=== PATIENT | female | born 1980 | race Caucasian/White ===

== ENCOUNTER 2018-03-02 03:26 | Inpatient (IN) | payer MEDICAID ==
[~2018-03-02] VITALS: Ht 165.1 cm; Wt 95.2 kg
[2018-03-02 05:21] LABS: CALCIUM 8.2 mg/dL (8.5-10.1); CARBON DIOXIDE 26.6 mmol/L (21-32); CHLORIDE SERUM 107 mmol/L (98-107); CREATININE SERUM 0.9 mg/dL (0.6-1.0); GFR1 > 60 mL/min; GLUCOSE SERUM 94 mg/dL (74-106); POTASSIUM SERUM 3.6 mmol/L (3.5-5.1); SODIUM SERUM 141 mmol/L (136-145)
[2018-03-02 05:27] LABS: ALBUMIN 3.5 g/dL (3.4-5.0); ALKALINE PHOSPHATASE 69 U/L (46-116); ALT/SGPT 22 U/L (14-59); AST/SGOT 15 U/L (15-37); BILIRUBIN TOTAL 0.27 mg/dL (0.20-1.00); LIPASE 110 IU/L (73-393); TOTAL PROTEIN, SERUM 6.9 g/dL (6.4-8.2)
[2018-03-02 07:07] LABS: BASOPHIL % 0.1 % (0-2); PLATELET COUNT 308 x10^3mcL (130-400)
[2018-03-02 07:12] LABS: RED CELL DISTRIBUTION WIDTH 21.7 % (11.5-14.5)
[2018-03-02 07:14] LABS: rbc morphology (normal/abnorm) ABNORMAL (NORMAL)
[2018-03-02 07:53] LABS: CHOLESTEROL 121 mg/dL (<200); HDL CHOLESTEROL 31 mg/dL (40-60)
[2018-03-02 08:43] LABS: microscopic required? YES; urine erythrocyte 3+ (NEGATIVE)
[2018-03-02] MEDS ORDERED: [UNRECOGNIZED DRUG - OTHER] PO (10:28)
[2018-03-02] MEDS ORDERED: LEVOTHYROXIN0.125 M2 PO (10:28)
[2018-03-02 11:35] LABS: MAGNESIUM 2.4 mg/dL (1.8-2.4); PHOSPHOROUS 3.5 mg/dL (2.5-4.9)
[2018-03-02 11:39] LABS: CHOLESTEROL/HDL RATIO 3.9
[2018-03-02 11:54] VITALS: BP 100/50
[2018-03-02 12:07] LABS: FREE T4 1.11 ng/dL (0.76-1.46); FREE THYROXINE INDEX 2.3 ug/dL (1.4-4.5); T4(THYROXINE) 7.1 ug/dL (4.7-13.3)
[2018-03-02 15:09] LABS: AMPHETAMINE QUAL UR NONE DETECTED (See below)
[2018-03-02 15:14] LABS: TOTAL IRON BINDING CAPACITY 398 ug/dL (250-450)
[2018-03-02 15:17] LABS: IRON 8 ug/dL (50-170)
[2018-03-02 15:27] LABS: RED BLOOD CELLS 4.1 M/mm3 (4.10-5.10)
[2018-03-02 17:25] VITALS: BP 105/66
[2018-03-02 21:03] VITALS: BP 98/58
[2018-03-03 05:13] VITALS: BP 100/41
[2018-03-03 06:08] LABS: CALCIUM 7.7 mg/dL (8.5-10.1); CARBON DIOXIDE 24.2 mmol/L (21-32); CHLORIDE SERUM 108 mmol/L (98-107); CREATININE SERUM 0.7 mg/dL (0.6-1.0); GFR1 > 60 mL/min; GLUCOSE SERUM 87 mg/dL (74-106); MAGNESIUM 2.2 mg/dL (1.8-2.4); PHOSPHOROUS 3.6 mg/dL (2.5-4.9); POTASSIUM SERUM 3.8 mmol/L (3.5-5.1); SODIUM SERUM 140 mmol/L (136-145)
[2018-03-03 07:09] LABS: BASOPHIL % 0.3 % (0-2); PLATELET COUNT 275 x10^3mcL (130-400)
[2018-03-03 07:11] LABS: RED CELL DISTRIBUTION WIDTH 22.1 % (11.5-14.5)
[2018-03-03 07:12] LABS: rbc morphology (normal/abnorm) ABNORMAL (NORMAL)
[2018-03-03 09:00] VITALS: BP 104/39
[2018-03-03 10:25] VITALS: Ht 165.1 cm; Wt 95.2 kg
[2018-03-03 12:35] VITALS: BP 112/67
[2018-03-03 16:56] VITALS: BP 97/42
[2018-03-03 20:45] VITALS: BP 97/57
[2018-03-03 20:52] VITALS: BP 97/57
[2018-03-03 22:11] LABS: BASOPHIL % 0.1 % (0-2); PLATELET COUNT 268 x10^3mcL (130-400)
[2018-03-03 22:24] LABS: RED CELL DISTRIBUTION WIDTH 25.1 % (11.5-14.5)
[2018-03-03 23:03] LABS: ovalocyte/elliptocyte 2+; rbc morphology (normal/abnorm) ABNORMAL (NORMAL); tear drop cell (dacryocyte) 1+
[2018-03-04 05:21] VITALS: BP 99/51
[2018-03-04 06:54] LABS: CALCIUM 8.1 mg/dL (8.5-10.1); CHLORIDE SERUM 108 mmol/L (98-107); CREATININE SERUM 0.8 mg/dL (0.6-1.0); GFR1 > 60 mL/min; GLUCOSE SERUM 83 mg/dL (74-106); MAGNESIUM 2.2 mg/dL (1.8-2.4); POTASSIUM SERUM 3.9 mmol/L (3.5-5.1); SODIUM SERUM 142 mmol/L (136-145)
[2018-03-04 08:20] LABS: BASOPHIL % 0.8 % (0-2); PLATELET COUNT 247 x10^3mcL (130-400)
[2018-03-04 08:24] LABS: RED CELL DISTRIBUTION WIDTH 26.4 % (11.5-14.5)
[2018-03-04 09:16] VITALS: BP 104/48
[2018-03-04 12:08] LABS: ovalocyte/elliptocyte 2+; rbc morphology (normal/abnorm) ABNORMAL (NORMAL); tear drop cell (dacryocyte) 1+
[2018-03-04 13:08] VITALS: BP 106/56
[2018-03-04 14:34] VITALS: BP 106/56
[2018-03-04] MEDS ORDERED: FER300 PO (15:50)
[2018-03-04] MEDS ORDERED: PRI20 PO (15:51)
[2018-03-04] MEDS ORDERED: COLACE100 MG PO (15:53)
[2018-03-04] MEDS ORDERED: CARAFATE1 GM PO (15:54)
[2018-03-04 16:33] VITALS: BP 102/52
== END 2018-03-04 18:30 | disposition home or self-care (01) | DRG 241 ==
LOC: ED 03:26 → DU 10:05
PROVIDERS: Emergency Medicine; Family Medicine; Internal Medicine
PROC: 30233N1 Transfusion of Nonautologous Red Blood Cells into Peripheral Vein, Percutaneous Approach (ICD-10-PCS; 2018-03-03)
PROC: 0DB78ZZ Excision of Stomach, Pylorus, Via Natural or Artificial Opening Endoscopic (ICD-10-PCS; principal; 2018-03-03 08:30)
PROC: 0D568ZZ Destruction of Stomach, Via Natural or Artificial Opening Endoscopic (ICD-10-PCS; 2018-03-03 08:30)
DX: K25.4 Chronic or unspecified gastric ulcer with hemorrhage (principal); N17.0 Acute kidney failure with tubular necrosis; D62 Acute posthemorrhagic anemia; K80.20 Calculus of gallbladder without cholecystitis without obstruction; E83.51 Hypocalcemia; D50.9 Iron deficiency anemia, unspecified; E03.9 Hypothyroidism, unspecified; Z68.36 Body mass index [BMI] 36.0-36.9, adult
CPT/HCPCS: 43239; 83880; 84439; 90732; 99406; J1200; J1610; J2250; J2310; J2916; J3010; J3490; J7030; J7040; J7050; P9016; Q0092; Q0163

== ENCOUNTER 2018-05-09 20:41 | Inpatient (IN) | payer MEDICAID ==
[~2018-05-09] VITALS: Ht 165.1 cm; Wt 99.3 kg
[~2018-05-09 20:41] MED LIST: CARAFATE1 GM PO; COLACE100 MG PO; FER300 PO; LEVOTHYROXIN0.125 M2 PO; PRI20 PO; [UNRECOGNIZED DRUG - OTHER] PO
[2018-05-09 21:10] VITALS: Ht 165.1 cm; Wt 99.3 kg
[2018-05-09 23:10] LABS: BASOPHIL % 0.3 % (0-2); PLATELET COUNT 245 x10^3mcL (130-400); RED CELL DISTRIBUTION WIDTH 13.5 % (11.5-14.5)
[2018-05-09 23:19] LABS: CALCIUM 8.3 mg/dL (8.5-10.1); CARBON DIOXIDE 25.6 mmol/L (21-32); CHLORIDE SERUM 105 mmol/L (98-107); CREATININE SERUM 0.8 mg/dL (0.6-1.0); GFR1 > 60 mL/min; GLUCOSE SERUM 124 mg/dL (74-106); POTASSIUM SERUM 3.6 mmol/L (3.5-5.1); SODIUM SERUM 140 mmol/L (136-145)
[2018-05-09 23:23] LABS: ALBUMIN 3.5 g/dL (3.4-5.0); ALKALINE PHOSPHATASE 70 U/L (46-116); ALT/SGPT 31 U/L (14-59); AST/SGOT 12 U/L (15-37); BILIRUBIN TOTAL 0.2 mg/dL (0.20-1.00); LIPASE 118 IU/L (73-393); TOTAL PROTEIN, SERUM 7.7 g/dL (6.4-8.2)
[2018-05-10 00:06] LABS: microscopic required? YES; urine erythrocyte 3+ (NEGATIVE)
[2018-05-10 02:06] LABS: MAGNESIUM 2.3 mg/dL (1.8-2.4); PHOSPHOROUS 3.8 mg/dL (2.5-4.9)
[2018-05-10 02:09] LABS: CHOLESTEROL/HDL RATIO 4.6
[2018-05-10 02:15] VITALS: BP 113/67
[2018-05-10 02:19] LABS: T3 TOTAL 1.29 ng/mL
[2018-05-10 02:34] LABS: FREE T4 1.05 ng/dL (0.76-1.46); FREE THYROXINE INDEX 3.7 ug/dL (1.4-4.5); T4(THYROXINE) 13.3 ug/dL (4.7-13.3)
[2018-05-10 05:24] LABS: AMPHETAMINE QUAL UR NONE DETECTED (See below)
[2018-05-10 05:31] VITALS: BP 99/53
[2018-05-10 09:00] VITALS: BP 111/70
[2018-05-10 16:55] VITALS: BP 120/75
[2018-05-10 17:25] VITALS: BP 122/70
[2018-05-10 20:20] VITALS: BP 114/72
[2018-05-11 04:21] VITALS: BP 99/62
[2018-05-11 05:39] VITALS: BP 114/68
[2018-05-11 06:32] LABS: BASOPHIL % 0.2 % (0-2); PLATELET COUNT 219 x10^3mcL (130-400); RED CELL DISTRIBUTION WIDTH 13.5 % (11.5-14.5)
[2018-05-11 06:43] LABS: CALCIUM 7.8 mg/dL (8.5-10.1); CARBON DIOXIDE 25.6 mmol/L (21-32); CHLORIDE SERUM 106 mmol/L (98-107); CREATININE SERUM 0.7 mg/dL (0.6-1.0); GFR1 > 60 mL/min; GLUCOSE SERUM 97 mg/dL (74-106); MAGNESIUM 2.3 mg/dL (1.8-2.4); PHOSPHOROUS 3.7 mg/dL (2.5-4.9); POTASSIUM SERUM 3.9 mmol/L (3.5-5.1); SODIUM SERUM 136 mmol/L (136-145)
[2018-05-11 08:34] VITALS: BP 102/65
[2018-05-11] MEDS ORDERED: TRAMADOL HCL50 MG PO (15:16)
[2018-05-11 17:14] VITALS: BP 102/65
== END 2018-05-11 18:18 | disposition home or self-care (01) | DRG 263 ==
LOC: ED 20:41 → MU 05-10 01:17
PROVIDERS: Emergency Medicine; Family Medicine; Surgery
PROC: 0FT44ZZ Resection of Gallbladder, Percutaneous Endoscopic Approach (ICD-10-PCS; principal; 2018-05-10 14:00)
DX: K80.10 Calculus of gallbladder with chronic cholecystitis without obstruction (principal); N17.0 Acute kidney failure with tubular necrosis; E03.9 Hypothyroidism, unspecified; E83.51 Hypocalcemia; E78.1 Pure hyperglyceridemia; R31.0 Gross hematuria; R80.9 Proteinuria, unspecified; E66.9 Obesity, unspecified; Z68.36 Body mass index [BMI] 36.0-36.9, adult
CPT/HCPCS: 84439; 94150; J0330; J1170; J1885; J2175; J2250; J2270; J2405; J2543; J2704; J2710; J3010; J3490; J7030; J7120; Q0092; Q0162

== ENCOUNTER 2018-05-22 03:47 | Emergency (ER) | payer MEDICAID ==
[~2018-05-22] VITALS: Ht 172.7 cm; Wt 96.6 kg
[~2018-05-22 03:47] MED LIST changes: +TRAMADOL HCL50 MG PO
[2018-05-22 03:56] VITALS: Ht 172.7 cm; Wt 96.6 kg
[2018-05-22 07:03] LABS: CALCIUM 8.7 mg/dL (8.5-10.1); CARBON DIOXIDE 26.2 mmol/L (21-32); CHLORIDE SERUM 103 mmol/L (98-107); CREATININE SERUM 0.7 mg/dL (0.6-1.0); GFR1 > 60 mL/min; GLUCOSE SERUM 87 mg/dL (74-106); SODIUM SERUM 138 mmol/L (136-145)
[2018-05-22 07:03] LABS: microscopic required? NO
[2018-05-22 07:21] LABS: ALBUMIN 3.5 g/dL (3.4-5.0); ALKALINE PHOSPHATASE 103 U/L (46-116); ALT/SGPT 59 U/L (14-59); AST/SGOT 25 U/L (15-37); BILIRUBIN TOTAL 0.2 mg/dL (0.20-1.00); LIPASE 105 IU/L (73-393)
[2018-05-22 07:33] LABS: BASOPHIL % 0.4 % (0-2); PLATELET COUNT 209 x10^3mcL (130-400)
[2018-05-22 08:15] LABS: UA SPECIFIC GRAVITY >=1.030 (1.005-1.035); urine erythrocyte NEGATIVE (NEGATIVE)
[2018-05-22 10:19] VITALS: BP 109/57
== END 2018-05-22 10:19 | disposition home or self-care (01) ==
LOC: ED 03:47
PROVIDERS: Emergency Medicine
DX: K29.00 Acute gastritis without bleeding (principal); E03.9 Hypothyroidism, unspecified; Z98.890 Other specified postprocedural states; Z90.49 Acquired absence of other specified parts of digestive tract; Z86.2 Personal history of diseases of the blood and blood-forming organs and certain disorders involving the immune mechanism
CPT/HCPCS: 36415; Q0092; Q0162

== ENCOUNTER 2019-03-19 15:17 | Emergency (ER) | payer MEDICAID ==
[~2019-03-19] VITALS: Ht 165.1 cm; Wt 101.2 kg
[2019-03-19 15:20] VITALS: BP 112/56; Ht 165.1 cm; Wt 101.2 kg
== END 2019-03-19 18:13 | disposition home or self-care (01) ==
LOC: ED 15:17
DX: R10.13 Epigastric pain (principal); R11.2 Nausea with vomiting, unspecified; E03.9 Hypothyroidism, unspecified; Z86.2 Personal history of diseases of the blood and blood-forming organs and certain disorders involving the immune mechanism; Z90.49 Acquired absence of other specified parts of digestive tract; Z98.890 Other specified postprocedural states

== ENCOUNTER 2019-04-15 10:55 | Emergency (ER) | payer MEDICAID ==
[~2019-04-15] VITALS: Ht 165.1 cm; Wt 99.3 kg
[2019-04-15 11:01] VITALS: Ht 165.1 cm; Wt 99.3 kg
[2019-04-15 11:49] LABS: UA SPECIFIC GRAVITY >=1.030 (1.005-1.035); microscopic required? YES; urine erythrocyte NEGATIVE (NEGATIVE)
[2019-04-15 12:11] LABS: AMPHETAMINE QUAL UR NONE DETECTED (See below)
[2019-04-15 12:21] LABS: BASOPHIL % 0.4 % (0-2); PLATELET COUNT 260 x10^3mcL (130-400)
[2019-04-15 12:23] LABS: RED CELL DISTRIBUTION WIDTH 22.1 % (11.5-14.5)
[2019-04-15 12:40] LABS: CALCIUM 8.5 mg/dL (8.5-10.1); CARBON DIOXIDE 22.2 mmol/L (21-32); CHLORIDE SERUM 103 mmol/L (98-107); CREATININE SERUM 0.8 mg/dL (0.6-1.0); GFR1 > 60 mL/min; GLUCOSE SERUM 90 mg/dL (74-106); POTASSIUM SERUM 4.1 mmol/L (3.5-5.1); SODIUM SERUM 138 mmol/L (136-145)
[2019-04-15 12:45] LABS: ALBUMIN 3.8 g/dL (3.4-5.0); ALKALINE PHOSPHATASE 73 U/L (46-116); ALT/SGPT 42 U/L (14-59); AST/SGOT 23 U/L (15-37); BILIRUBIN TOTAL 0.3 mg/dL (0.20-1.00); LIPASE 91 IU/L (73-393); TOTAL PROTEIN, SERUM 7.7 g/dL (6.4-8.2)
[2019-04-15 12:53] LABS: rbc morphology (normal/abnorm) ABNORMAL (NORMAL)
[2019-04-15 15:11] VITALS: BP 102/61
== END 2019-04-15 15:11 | disposition home or self-care (01) ==
LOC: ED 10:55
PROVIDERS: Emergency Medicine
DX: D50.9 Iron deficiency anemia, unspecified (principal); R10.13 Epigastric pain; E03.9 Hypothyroidism, unspecified; F17.210 Nicotine dependence, cigarettes, uncomplicated; Z98.890 Other specified postprocedural states; Z90.49 Acquired absence of other specified parts of digestive tract
CPT/HCPCS: 99406; J3490; J7030; Q9967